=== PATIENT | male | born 1990 | race Caucasian/White ===

== ENCOUNTER 2021-09-15 14:47 | Emergency (ER) | payer OTHER, SELFPAY ==
[2021-09-15 14:57] VITALS: BP 161/96; PULSE 89; RESP 18; TEMP 37.2; O2SAT 98
--- NOTE | 2021-09-15 15:02 | ED.BACK ---
HPI - Back Pain/Injury General Chief Complaint: Back Pain/Injury Stated Complaint: lower back pain Source: patient Mode of arrival: ambulatory Limitations: no limitations History of Present Illness HPI Narrative: Patient is a 31-year-old male who presents complaining of lower back pain. He reports he was at work and had clocked out and was reaching for a backpack. Patient reports muscle pain and spasms in the lower back after reaching for a backpack. He denies numbness and tingling in extremities, denies loss of bowel or bladder control. Patient reports taking [id number] medications prior to arrival. He has no significant medical history. He denies all other complaints at this time. MD elicited complaint: back pain Related Data Allergies Allergy/AdvReac Type Severity Reaction Status Date / Time No Known Allergies Allergy Mild Verified 09/15/21 14:55 Review of Systems Review of Systems: CONSTITUTIONAL: Denies fever, chills, or sweats. EYES: Denies visual changes, redness, or discharge. ENT: Denies rhinorrhea, congestion, sore throat, or otalgia. CARDIOVASCULAR: Denies chest pain, palpitations, or edema. RESPIRATORY: Denies cough or dyspnea. GASTROINTESTINAL: Denies abdominal pain, nausea, vomiting, or diarrhea. GENITOURINARY: Denies dysuria or hematuria. SKIN: Denies rash or itching. MUSCULOSKELETAL: Reports back pain NEUROLOGIC: Denies headache, numbness, dizziness, or weakness. PSYCHIATRIC: Denies anxiety or depression. FOR[facility]LY [facility] Past Medical History Medical History HTN (hypertension) Melena Surgical History Surgical History Hx of tonsillectomy Social History Social History (Updated 09/15/21 @ 15:04 by SHANNA Swift) Smoking status: Current every day smoker Alcohol intake: never Substance use: never Living arrangements: with family Occupation/Education: occupation Comments At the time of signature, I have reviewed and agree with nursing past medical, surgical, social, and family history unless otherwise noted. Please see nursing chart for further information. There is no relevant family history pertinent to the presenting complaint. Exam Narrative: GENERAL: Well-appearing, well-nourished, and in no acute distress. HEAD: Normocephalic, atraumatic. EYES: EOMI. No redness or drainage. ENT: Mucous membranes pink and moist. CHEST: No respiratory distress. Clear to auscultation. HEART: Regular rate and rhythm. MUSCULOSKELETAL: No bony tenderness. EXTREMITIES: Normal range of motion. No edema. SKIN: Warm, dry, no rash. NEURO: No focal deficits. Alert and oriented x3. Gait steady. PSYCH: Normal affect. No signs of depression or anxiety. Course Vital Signs Vital signs: Vital Signs Temperature 37.2 C 09/15/21 14:57 Pulse Rate 89 09/15/21 14:57 Respiratory Rate 18 09/15/21 14:57 Blood Pressure 161/96 H 09/15/21 14:57 Pulse Oximetry 98 09/15/21 14:57 Temperature 37.2 C 09/15/21 14:57 Pulse Rate 89 09/15/21 14:57 Respiratory Rate 18 09/15/21 14:57 Blood Pressure 161/96 H 09/15/21 14:57 Pulse Oximetry 98 09/15/21 14:57 Reviewed. Patient has been instructed to follow-up with his PCP regarding his blood pressure. MDM - Back Pain/Injury Differential Diagnosis Differential diagnosis: Likely lumbar radiculopathy, sciatica, strain of lumbar region and discitis Critical Care Time Critical Care Time Critical Care Time: No Discharge Plan Discharge Clinical Impression: Strain of lumbar region, Lumbar radiculopathy Patient Disposition: Home, Self-Care Condition: Stable Instructions: Antibiotic Form Additional Instructions: Take muscle relaxant and prednisone as directed. You may take ibuprofen and Tylenol for pain. Follow-up with your PCP in 3 to 5 days if symptoms persist. Prescriptions: New prednisone 20 mg tablet
== END 2021-09-15 15:20 | disposition home or self-care (01) ==
PROVIDERS: Emergency Provider Nurse Practitioner
DX: S39.012A Strain of muscle, fascia and tendon of lower back, initial encounter (principal); X50.9XXA Other and unspecified overexertion or strenuous movements or postures, initial encounter; M54.16 Radiculopathy, lumbar region; F17.200 Nicotine dependence, unspecified, uncomplicated; I10 Essential (primary) hypertension
CPT/HCPCS: 99203; G0463

== ENCOUNTER 2023-09-10 10:08 | Emergency (ER) | payer OTHER, SELFPAY ==
[2023-09-10 10:13] VITALS: BP 143/86; PULSE 80; RESP 16; TEMP 36.6; O2SAT 98
--- NOTE | 2023-09-10 10:54 | ED.EYEPROB ---
HPI - Eye Problem General Chief complaint: Eye Problems Stated complaint: Left and Right Eye Irritation Time Seen by Provider: 09/10/23 10:38 Source: patient, RN notes reviewed and old records reviewed Mode of arrival: ambulatory Limitations: no limitations History of Present Illness HPI Narrative: 33-year-old male who presents to [facility] with complaints of bilateral eye redness with matting and drainage and some swelling of his eyelids for the past 2 days.Patient reports that his right eye starting first with irritation and drainage and then the left eye. Patient works for [employer] but denies any exposure to his eyes to chemical compounds. Patient reports that vision is a little blurry and denies any light sensitivity, denies any sharp pain to his eyes. MD chief complaint: eye redness Onset (ago): day(s) (2) Onset description: gradual Duration: progressively worsening Location: both eyes Eye Symptoms: burning, redness, itching and discharge Severity scale (1-10): 5 Treatments Prior to Arrival: other (Lubricating eye drops) Related Data Allergies Allergy/AdvReac Type Severity Reaction Status Date / Time No Known Allergies Allergy Mild Verified 09/10/23 10:17 Review of Systems Review of Systems: CONSTITUTIONAL: Denies fever, chills, or sweats. EYES: Denies any acute visual changes, states some blurring which clears with blinking Reports redness, irritation, discharge bilateral eyes,with swelling of eyelids. ENT: Denies rhinorrhea, congestion, sore throat, or otalgia. CARDIOVASCULAR: Denies chest pain, palpitations, or edema. RESPIRATORY: Denies cough or dyspnea. SKIN: Denies rash or itching. NEUROLOGIC: Denies headache All systems reviewed & are unremarkable except as noted in HPI and below PMFSH Past Medical History Medical History HTN (hypertension) Melena Surgical History Surgical History Hx of tonsillectomy Social History Social History (Updated 09/15/21 @ 15:04 by Kacey Alexandre, SHANNA) Smoking status: Current every day smoker Alcohol intake: never Substance use: never Living arrangements: with family Occupation/Education: occupation Comments At time of signature, agree with nursing past medical, surgical, social and family history. There is no relevant family history pertinent to the presenting complaint Exam Narrative: GENERAL: Well-appearing, well-nourished, and in no acute distress. HEAD: Normocephalic, atraumatic. EYES: PERRLA and EOMI. Upper and lower eyelids swollen,No periorbital cellulitis noted. Sclera and conjunctivae injected, yellow mucoid drainage noted,patient denies any sharp pain to eyes states some burning sensation ENT: Nares clear, no rhinorrhea or epistaxis. Mucous membranes moist.TM's normal, throat pink with tonsils absent NECK: Supple.no lymphadenopathy CHEST: Clear to auscultation. No respiratory distress.SAO2 98% on room air HEART: Regular rate and rhythm. No murmur heard. Normal peripheral pulses. SKIN: Warm, dry, no rash. NEURO: No focal deficits. Alert and oriented x3. Course Course Emergency Course: Patient is aware of diagnosis, understands and agrees to treatment plan. Anticipatory guidance given. Patient agrees to follow-up as directed and is aware of reasons to seek care at the emergency department. Portions of this record may have been created with voice recognition software Level of Care: Express Care Visit Vital Signs Vital signs: Vital Signs Temperature 36.6 C 09/10/23 10:13 Pulse Rate 80 09/10/23 10:13 Respiratory Rate 16 09/10/23 10:13 Blood Pressure 143/86 H 09/10/23 10:13 Pulse Oximetry 98 09/10/23 10:13 Oxygen Delivery Room Air 09/10/23 10:13 Temperature 36.6 C 09/10/23 10:13 Pulse Rate 80 09/10/23 10:13 Respiratory Rate 16 09/10/23 10:13 Blood Pressure 143/86 H 09/10/23 10:1
== END 2023-09-10 11:05 | disposition home or self-care (01) ==
PROVIDERS: Emergency Provider Registered Nurse; PCP Family Medicine
DX: H10.9 Unspecified conjunctivitis (principal); F17.200 Nicotine dependence, unspecified, uncomplicated; I10 Essential (primary) hypertension
CPT/HCPCS: 99213; G0463